=== PATIENT | male | born 1980 | race African-American/Black ===

== ENCOUNTER 2021-05-16 15:02 | Outpatient (CLI) | payer MEDICARE, SELFPAY ==
--- NOTE | ~2021-05-16 | US_ITS ---
US abdomen limited INDICATION: Abnormal blood chemistries PROCEDURE: Realtime right upper abdominal ultrasound. COMPARISON: No prior studies for comparison. FINDINGS: The pancreas is normal without focal mass or pancreatic ductal dilation. Liver echotexture is increased, consistent with fatty infiltration. There is normal directional flow in the portal ve in. The gallbladder is normal without stones, gallbladder wall thickening or pericholecystic fluid. Comm on bile duct measures 3 mm. No sonographic Allen's sign. IMPRESSION: 1: Hepatic steatosis. Reviewed, dictated and finalized at location B. IMPRESSION: 1: Hepatic steatosis.
== END 2021-05-16 15:03 | disposition home or self-care (01) ==
PROVIDERS: PCP Internal Medicine; Visit Provider Internal Medicine
DX: R79.89 Other specified abnormal findings of blood chemistry (principal); K76.0 Fatty (change of) liver, not elsewhere classified
CPT/HCPCS: 76705

== ENCOUNTER 2025-07-13 14:28 | Outpatient (CLI) | payer MEDICARE, SELFPAY ==
--- OUTSIDE RECORDS SUMMARY | 2025-07-13 13:30 | XMS_ITS | Encounter Summary ---
Author Organization [facility] KATHERINE Scott [facility] Address [address] [place] [address] Care Team Providers Care Compressor Stations Superintendent Name Role Phone Unavailable Primary Care Provider Unavailabl e Reason for Referral * Laboratory Services (Routine) - Open Specialty Diagnoses / Procedures Referred By Contac t Referred To Contact Diagnoses Iron overload Procedures HEMOCHROMATOSIS GENOTYPE Daryl Wheeler MD [address] [facility] [email or web address] [address] [place] [id number] Phone: tel: fax: Referral ID Status Reason Start Date Expiration Date Visits Re quested Visits Authorized [id number] Open 07/13/2025 08/13/2026 1 1 Reason for Visit * Reason Comments Establish Care Encounter Details Date Type Department Care Team (Late st Contact Info) Description 07/13/2025 1:30 PM CDT Office Visit [facility] ([facility]3] Oncology and Hematology - [place] [address] [facility] [address] [place] [address] Daryl Wheeler MD [email or web address] [place] [id number] Iron overload (Primary Dx) Social History Tobacco Use Types Packs/Day Years Used Date Smoking Tobacco: Never Smokeless Tobacco: Never Tobacco Cessation:Counseling Given: Not Answered Alcohol Use Standard Drinks/Week Comments Yes 0 (1 standard drink = 0.6 oz pur e alcohol) Occasionally Sex and Gender Information Value Date Recorded Sex Assigned at Not on file Legal Sex Male 4:09 PM CDT Gender Identity Not on file Sexual Orientation Not on file documented as of this encounter Last Filed Vital Signs Vital Sign Reading Time Taken Comments Blood Pressure 156/98 07/13/2025 1:26 PM CDT Pulse 76 07/13/2025 1:23 PM CDT Temperature 36.4 C (97.5 F) 07/13/2025 1:23 PM CDT Respiratory Rate 15 07/13/2025 1:23 PM CDT Oxygen Saturation 93% 07/13/2025 1:23 PM CDT Inhaled Oxygen Concentration - - Weight 91.5 kg (201 lb 12.8 oz) 07/13/2025 1:23 PM CDT Height 175.3 cm (5' 9) 07/13/2025 1:23 PM CDT Body Mass Index 29.8 07/13/2025 1:23 PM CDT documented in this encounter Progress Notes * Daryl Wheeler MD - 07/13/2025 2:10 PM CDT Hematology-oncology consult Note Requesting Physician Primary Care Physician No primary care provider on file. Problem list There is no problem list on file for this patient. Previous TREATMENT ? Measurable Disease ? Reason for Visit Adarsh Dominguez is a 44 y.o. male who was referred for consultation for elevated ferritin. History of present illness This is a 44-year-old -[place] African male with history of borderline diabetes, hypertension and hyperlipidemia referred to me for elevated ferritin level. Patient denies any intake of iron supplements. He drinks alcohol maybe once or twice a year when he go and visit his brother. He denies takingany multivitamin. Denies any arthritis. He lost almost 100 pound weight in the last 8 years duration. He was sick 8 years ago with nausea vomiting secondary to ear infection that resolved after ENT management. His labs from May 2025 showed iron 127 saturation 41 and ferritin of 502. Patient is adopted and has no information about his biological parents. Past Medical History Past Medical History: Diagnosis Date Hyperlipidemia Hypertension Borderline diabetes Surgical History No past surgical history on file. Tonsillectomy and adenoidectomy as a child Medications Current Outpatient Medications Medication Sig Dispense Refill rosuvastatin (CRESTOR) 20 mg tablet Take 20 mg by mouth daily. metFORMIN (GLUCOPHAGE XR) 750 mg Extended Release 24 hour tablet Take 750 mg by mouth daily with breakfast. CALCIUM CARBONATE-VITAMIN D3 ORAL Take by mouth. busPIRone (BUSPAR) 10 mg tablet Take 10 mg by mouth daily. cetirizine (ZyrTEC) 10 mg tablet Take 10 mg by mouth daily. lisinopril-hydroCHLOROthiazide (ZESTORETIC) 20-12.5 mg tablet Take 1 Tablet by mouth daily. No current facility-administered medications for this visit. Allergies No Known Allergies Immunizations: There is no immunization history on file for this patient. Family History Family History Adopted: Yes Family history unknown: Yes Social History Social History Tobacco Use Smoking status: Never Smokeless tobacco: Never Substance Use Topics Alcohol use: Yes Comment: Occasionally Review of Systems Constitutional: Patient did not mention fever; no night sweats; no anorexia; no weight loss; no fatique NEENT: Patient did not mention headache; no change in vision; no change in hearing; no sore throat;no dysphagia Respiratory: Patient did not mention shortness of breath; no pleuritic chest pain; no cough; no hemoptysis Cardiac: Patient did not mention cardiac-like chest pain; no palpitations; no orthopnea; no PND; noDOE GI: Patient did not mention abdominal pain; no nausea; no vomiting; no diarrhea; no hematochezia; no melena : Patient did not mention dysuria; no frequency; no hesitancy; no hematuria TEST ADMINISTRATOR: Musculosketetal: Patient did not mention bone pain; no arthralgia; no joint swelling; no myalgia; Skin: Patient did not mention pruritis; no rash; no petechiae; no ecchymoses Endocrine: Patient did not mention polydipsia; no polyuria; no unusual weight gain Neuro: Patient did not mention headache; no change in vision; no sensory changes; no muscle weakness; no confusion; no seizures Psych: Patient did not mention anxiety; no depression; Physical Exam Vitals: As per nursing note Constitutional: Well developed, well nourished, no acute distress, non-toxic appearance Teeth and gum. No signs of infection or swelling. Eyes: PERRL, conjunctiva normal HEENT: Atraumatic, external ears normal, nose normal, oropharynx moist, no pharyngeal exudates. no sinus tenderness Neck- normal range of motion, no tenderness, supple Respiratory: No respiratory distress, normal breath sounds, no rales, no wheezing Cardiovascular: Normal rate, normal rhythm, no murmurs, no gallops, no rubs GI: Soft, nondistended, normal bowel sounds, nontender, no splenomegaly, no hepatomegaly, no mass, no rebound, no guarding : No costovertebral angle tenderness Musculoskeletal: No edema, no tenderness, no deformities. Back- no tenderness Integument: Well hydrated, no rash, Digits and nails inspection normal Lymphatic: No lymphadenopathy noted Neurologic: Alert & oriented x 3, CN 2-12 normal, normal motor function, normal sensory function, no focal deficits noted Psychiatric: Speech and behavior appropriate ? labs No results found for this or any previous visit (from the past 24 hours). Labs from May 2025 showed iron 127 saturation 41 ferritin 502 Pathology ? Imaging & Other Studies Performance Status? Assessment / Plan: ? Iron overload. Patient is a pleasant 44-year-old -[place] African male with history of borderline diabetes, hypertension and hyperlipidemia. He denies any history of liver disease. He drinks alcohol rarely once or twice a year. He is not taking any multivitamin or any iron supplements. He denies any signs of infection and inflammation. He gained almost 100 pound weight in last 8 years duration after recovering from the nausea vomiting due to ear infection. Patient is adopted and has no information about the biological parents. I have discussed the differential diagnosis and management of the iron overload. I will order the workup that will include CBC with differential, CMP, iron profile, genetic testing for hemochromatosis and CRP. I have recommended avoiding any iron supplements and abstinence from drinking. I will discuss the results with the patient in 2 weeks and decide about phlebotomy based on the results. I have answered all the questions the patient and the mother satisfaction. Hyperlipidemia. Patient is on Crestor. Hypertension. He is on Zestril. Borderline diabetes. Patient is on metformin. Thank you very much for allowing me to participate in Adarsh Dominguez's evaluation and management. Please feel free to contact if I can be of any further assistance in your patient???s care requiringhematology or oncology evaluation. Sincerely, ? ? Daryl Wheeler M.D. cell TOBACCO COUNSELING He is not a tobacco/nicotine user. Daryl Wheeler MD ,07/13/2025 2:10 PM ? Total time spent 60 minutes, two third of the total time spent counseling patient [id number]. CC:? documented in this encounter Plan of Treatment Upcoming Encounters Date Type Department Care Team (Late st Contact Info) Description 08/02/2025 4:00 PM CDT Telephone Check Up [facility] ([facility]3] Oncology and Hematology - [place] [address] [place] [address] Elizabeth Thomason MD [address] [place] [address] Scheduled Orders Name Type Priority Associated Diagnoses Orde r Schedule CBC WITH DIFFERENTIAL Lab Stat Iron overload Expected: 07/13/2025, Expires: 07/13/2026 COMPREHENSIVE METABOLIC PANEL Lab Stat Iron overload Expected: 07/13/2025, Expires: 07/13/2026 C-REACTIVE PROTEIN Lab Routine Iron overload Expected: 07/13/2025, Expires: 07/13/2026 FERRITIN Lab Routine Iron overload Expected: 07/13/2025, Expires: 07/13/2026 HEMOCHROMATOSIS GENOTYPE Lab Routine Iron overload Ordered: 07/13/2025 IRON, TIBC, AND PERCENT SATURATION Lab Routine Iron overload Expected: 07/13/2025, Expires: 07/13/2026 documented as of this encounter Visit Diagnoses Diagnosis Iron overload- Primary Other disorders of iron metabolism documented in this encounter
[2025-07-13 14:49] LABS: Hematocrit 46.6 % (42.0-52.0); Hemoglobin 14.5 g/dL (14.0-18.0); Immature Granulocyte Percent A 0.1 % (0-0.5); Lymphocytes Absolute Auto 2.99 K/mm3 (0.9-3.2); Mean Corpuscular HGB Conc 31.1 g/dl (32-36); Mean Corpuscular Hemoglobin 21.3 pg (26-34); Mean Corpuscular Volume 68.3 fl (80-100); Nucleated Red Blood Cells Absolute Auto 0.000 K/mm3 (0.0-0.012); Nucleated Red Blood Cells Perc 0.0 % (0.0-0.2); Platelet Count Result 357 k/mm3 (150-375); Red Blood Count 6.82 M/mm3 (4.6-6.20); White Blood Count 6.8 K/mm3 (4.5-10.0)
--- OUTSIDE RECORDS SUMMARY | 2025-07-13 14:52 | XMS_ITS | Clinical Summary ---
Author Organization [facility] Address [address] [facility] [place] [address] Care Team Providers Care Drawing Hand Name Role Phone Mushtaq Leach DO Primary Care Provider [phone] Allergies No known active allergies Medications atorvastatin (LIPITOR) 20 mg tablet daily 7 Active busPIRone (BUSPAR) 10 mg tablet Take 1 tablet (10 mg total) by mouth 3 (three) times a day Active lisinopril-hydr oCHLOROthiazide (ZESTORETIC) 20-12.5 mg per tablet Take 1 tablet by mouth daily Active atorvastatin (LIPITOR) 80 mg tablet Take 1 tablet (80 mg total) by mouth nightly at bedtime 3 Active cetirizine (Allergy Relief, cetirizine,) 10 mg tablet Take 1 tablet (10 mg total) by mouth daily 90 tablet 3 4 Active triamcinolone (NASACORT) 55 mcg nasal inhalerIndicati ons:Allergic Rhinitis,Perenn ial Allergic Rhinitis Administer 1 spray into each nostril 2 (two) times a day 50.7 g 3 4 Active rosuvastatin (CRESTOR) 20 mg tablet Take 1 tablet (20 mg total) by mouth daily 5 Active Active Problems Problem Noted Date Diagnosed Date Allergic rhinitis due to animal hair and dander 01/25/2021 Overview (09/13/2023): SKIN TESTING: Epicutaneous tests on 04-17-2017 showed--show good positive histamine controls and negative saline controls. There is a 1+ reaction to Bermuda grass, +/- reactions to lambs quarters, Phoma and bach elder. Intradermal tests show only 1+ reactions to Phoma and cat hair, +/- reaction to dog, ragweed and [place]erm[place] grass. 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 Obstruction of ventilation tube by cerumen 04/06 Rash 04/06/2017 Chronic rhinitis 04/06/2017 Nasal discharge 04/06/2017 Resolved Problems Problem Noted Date Diagnosed Date Resolved Date Allergic rhinitis 04/17/2017 01/25/2021 Encounters Date Type Department Care Team Description 05/19/2025 Telephone [facility] Otolaryngology [address] [place] [address] Candy Robins MS from Last 3 Months Surgical History Surgery Date Site/Laterality Comments TONSILLECTOMY ADENOIDECTOMY ADENOIDECTOMY Social History Tobacco Use Types Packs/Day Years Used Date Smoking Tobacco: Never Smokeless Tobacco: Never Tobacco Cessation:Counseling Given: Not Answered Alcohol Use Standard Drinks/Week Comments No 0 (1 standard drink = 0.6 oz pur e alcohol) AUDIT-C Answer Date Recorded Frequency of Alcohol Consumption Not on file 09/30/2024 Q2: How many drinks containi ng alcohol do you have on a typical day when you are drinking? Patient does not drink Frequency of Binge Drinking Not on file 04/2024 Sex and Gender Information Value Date Recorded Sex Assigned at Not on file Legal Sex Male 8:29 AM DIRECTOR OF AUDIOLOGY Gender Identity Not on file Sexual Orientation Straight 01/25/2021 1: 42 PM DIRECTOR OF AUDIOLOGY Obstetrics History Last Filed Vital Signs Vital Sign Reading Time Taken Comments Blood Pressure 131/88 09/30/2024 9:57 AM DIRECTOR OF AUDIOLOGY Pulse 80 09/30/2024 9:57 AM DIRECTOR OF AUDIOLOGY Temperature 36.8 C (98.3 F) 09/30/2024 9:57 AM DIRECTOR OF AUDIOLOGY Respiratory Rate 18 06/13/2022 1:52 PM CDT Oxygen Saturation 98% 09/30/2024 9:57 AM DIRECTOR OF AUDIOLOGY Inhaled Oxygen Concentration - - Weight 88.9 kg (196 lb) 02/23/2025 10:52 AM CDT Height 175.3 cm (5' 9) 09/30/2024 9:57 AM DIRECTOR OF AUDIOLOGY Body Mass Index 28.94 09/30/2024 9:57 AM DIRECTOR OF AUDIOLOGY Plan of Treatment Health Maintenance Due Date Last Done Comments Depression Screening 1981 Hepatitis C Screening 1981 Prostate Cancer Screening-PSA 1981 Varicella Vaccines (1 of 2 - 13+ 2-dose series) 1994 Hepatitis B Screening 1999 Regular Well Visit/Exam 18-64 1999 HPV Vaccines (1 - 3-dose SCDM series) 2008 Influenza Vaccine (#1) 2025 9, 11/02/2018, 11/14/2016, Additional history exists DTaP/Tdap/Td Vaccine (2 - Td or Tdap) 04/03/2028 04/03/2018 Pneumococcal vaccine <65 Aged Out No longer eligible based on patient's age to complete this topic Insurance [employer] MEDICARE HMO Care Teams Drawing Hand Relationship Specialty Start Date End Date Mushtaq Leach DO PCP - General Internal Medicine 01/27/20
--- OUTSIDE RECORDS SUMMARY | 2025-07-13 14:52 | XMS_ITS | Clinical Summary ---
Author Organization [facility] Sandra llanos [facility] Address [address] [place] [place] [address] Care Team Providers Care Nurse Charge Rn Name Role Phone Unavailable Primary Care Provider Unavailabl e Allergies No known active allergies Medications busPIRone (BUSPAR) 10 mg tablet Take 10 mg by mouth daily. Active cetirizine (ZyrTEC) 10 mg tablet Take 10 mg by mouth daily. Active lisinopril-hydro CHLOROthiazide (ZESTORETIC) 20-12.5 mg tablet Take 1 Tablet by mouth daily. Active rosuvastatin (CRESTOR) 20 mg tablet Take 20 mg by mouth daily. 12/18/2024 Active metFORMIN (GLUCOPHAGE XR) 750 mg Extended Release 24 hour tablet Take 750 mg by mouth daily with breakfast. Active CALCIUM CARBONATE-VITAMI N D3 ORAL Take by mouth. Active Active Problems No known active problems Encounters Date Type Department Care Team Description 07/13/2025 1:30 PM CDT Office Visit [facility] Oncology and Hematology - [place] [address] [facility] [address] [address] Daryl Wheeler MD Iron overload (Primary Dx) from Last 3 Months Family History * Patient is adopted Relation Name Status Comments Brother Father Mother Social History Tobacco Use Types Packs/Day Years [...] on file Sexual Orientation Not on file Last Filed Vital Signs Vital Sign Reading [...] Mass Index 29.8 07/13/2025 1:23 PM CDT Plan of Treatment Upcoming Encounters Date Type Department Care Team (Late st Contact Info) Description 08/02/2025 4:00 PM CDT Telephone Check Up [facility] Oncology and Hematology - [place] [address] [place] [address] Elizabeth Thomason MD [address] [place] [address] Health Maintenance Due Date Last Done Comments Pre-Diabetes and Diabetes Screening 1981 HPV VACCINES (1 - Male 3-dose series) 1996 DTAP/TDAP/TD VACCINES (1 - Tdap) 2000 HEPATITIS B VACCINES (1 of 3 - 19+ 3-dose series) 09/25 [place] Prev entative Visit/Annual Wellness Visit 11/25/2024 INFLUENZA VACCINE (#1) 2025 Insurance [facility]
[2025-07-13 16:40] LABS: Alanine Aminotransferase 162 U/L (6-50); Albumin Level 5.0 g/dL (3.5-5.1); Alkaline Phosphatase 62 U/L (38-126); Anion Gap 11 mmol/L (4-12); Aspartate Amino Transferase 96 U/L (17-59); Bilirubin,Total 1.5 mg/dL (0.2-1.3); Blood Urea Nitrogen 14 mg/dL (9-20); CRP < 0.5 mg/dL (<1.0); Calcium 10.2 mg/dL (8.4-10.2); Carbon Dioxide 30 mmol/L (22-30); Chloride 97 mmol/L (98-107); Estimated Glomerular Filt Rate > 60; Glucose 89 mg/dL (65-110); Potassium 3.4 mmol/L (3.4-5.0); Sodium 138 mmol/L (137-145); Total Protein 9.0 g/dL (6.3-8.2)
[2025-07-13 18:13] LABS: Ferritin 253.00 ng/mL (17.9-464)
[2025-07-13 19:30] LABS: Iron 106 ug/dL (49-181); Percent Iron Saturation 29 % (20-50)
== END 2025-07-13 14:29 | disposition home or self-care (01) ==
LOC: ANHLAB 14:29
PROVIDERS: PCP Nurse Practitioner Family; Visit Provider Internal Medicine Hematology & Oncology
DX: E83.19 Other disorders of iron metabolism (principal)
CPT/HCPCS: 36415; 80053; 81256; 82728; 83540; 83550; 85025; 86140

== ENCOUNTER 2025-08-31 13:00 | Outpatient (RCR) | payer MEDICARE, SELFPAY | END 2025-09-07 06:25 | disposition home or self-care (01) | LOC: ANHDMC 13:00 | PROVIDERS: PCP Nurse Practitioner Family; Visit Provider Family Medicine | DX: E11.9 Type 2 diabetes mellitus without complications (principal); R79.89 Other specified abnormal findings of blood chemistry; Z71.89 Other specified counseling | CPT/HCPCS: G0108 ==

== ENCOUNTER 2025-09-02 09:01 | Outpatient (CLI) | payer MEDICARE, SELFPAY ==
--- NOTE | ~2025-09-02 | US_ITS ---
Examination: US abdomen complete Clinical History: K76.0 - Fatty (change of) liver, not elsewhere classified . Comparison: Abdominal ultrasound 05/16/2021 MRI abdomen 03/15/2017 Technique: Complete abdominal sonography Findings: Liver: Normal size. Echogenic. Pericholecystic focal fatty sparing. No intrahepatic biliary ductal dilatation. Normal hepatopedal flow main portal vein. Common duct: Normal caliber, 5 mm. Gallbladder: No stones. No wall thickening. No pericholecystic fluid. Spleen: Unremarkable. Pancreas: Obscured by bowel gas. Kidneys: Right kidney 17 mm cyst with mural calcification. Possible 6 mm stone. Aorta: No aneurysmal dilatation. Retrohepatic IVC: Unremarkable. IMPRESSION: 1. No acute findings. 2. Hepatic steatosis and/or hepatocellular disease. 3. 3 liver lesions on prior MRI not seen today. Reviewed, dictated and finalized at location R.
== END 2025-09-02 09:02 | disposition home or self-care (01) ==
PROVIDERS: PCP Nurse Practitioner Family; Visit Provider Nurse Practitioner Family
DX: K76.0 Fatty (change of) liver, not elsewhere classified (principal)
CPT/HCPCS: 76700

== ENCOUNTER 2025-10-26 09:12 | Outpatient (RCR) | payer MEDICARE, SELFPAY | END 2025-10-26 14:29 | disposition home or self-care (01) | LOC: ANHDMC 09:12 | PROVIDERS: PCP Nurse Practitioner Family; Visit Provider Family Medicine | DX: E11.65 Type 2 diabetes mellitus with hyperglycemia (principal); R79.89 Other specified abnormal findings of blood chemistry; Z71.89 Other specified counseling | CPT/HCPCS: G0108 ==